=== PATIENT | female | born 1950 | race Caucasian/White ===

== ENCOUNTER → 2016-11-28 | Outpatient (CLI) | payer MEDICARE, OTHER ==
[2016-11-28 12:31] LABS: ALT 22 U/L (9-52); AST 20 U/L (14-36); Alkaline Phosphatase 65 U/L (38-126); Anion Gap 5 mmol/L; Blood Urea Nitrogen 26 mg/dL (7-17); Calcium 9.5 mg/dL (8.4-10.2); Carbon Dioxide 32 mmol/L (22-30); Chloride 105 mmol/L (98-107); Cholesterol 177 mg/dL (<200); Glucose 79 mg/dL (74-99); HDL Cholesterol 69 mg/dL (40-60); Non-African American GFR(MDRD) >60 (>60 ml/min/1.73 sqM); Potassium 5.2 mmol/L (3.5-5.1); Sodium 142 mmol/L (137-145); Total Bilirubin 0.7 mg/dL (0.2-1.3); Total Protein 6.4 g/dL (6.3-8.2); Triglycerides 70 mg/dL (<150)
[2016-11-28 12:42] LABS: Basophils % (A) 1 %; CH 31.7; CHCM 32.2; Eosinophils # (A) 0.1 k/uL (0-0.7); Eosinophils % (A) 1 %; HCT 44.2 % (34.0-46.0); HDW 2.17; HGB 14.6 gm/dL (11.4-16.0); Luc # (Auto) 0.13; Luc % (Auto) 2; Lymphocytes # (A) 1.9 k/uL (1.0-4.8); Lymphocytes % (A) 24 %; MCH 32.6 pg (25.0-35.0); MCV 98.8 fL (80.0-100.0); Mean Platelet Volume 7.2; Monocytes # (A) 0.5 k/uL (0-1.0); Monocytes % (A) 6 %; Neutrophils # (A) 5.5 k/uL (1.3-7.7); Neutrophils % (A) 68 %; RBC 4.48 m/uL (3.80-5.40); RDW 13.2 % (11.5-15.5); WBC 8.2 k/uL (3.8-10.6); WBC (Perox) 8.42
[2016-11-28 14:07] LABS: Erythrocyte Sedimentation Rate 15 mm/hr (0-20)
== END | disposition home or self-care (01) ==
LOC: LABWHC1 11:42
PROVIDERS: ATTEND Internal Medicine Infectious Disease
DX: M46.26 Osteomyelitis of vertebra, lumbar region (principal)
CPT/HCPCS: 36415; 80053; 80061; 85025; 85652; 86140

== ENCOUNTER → 2017-03-25 | Outpatient (CLI) | payer MEDICARE, OTHER ==
--- NOTE | 2017-03-27 08:49 | MM ---
Reason for exam: screening (asymptomatic). Last mammogram was performed 1 year and 2 months ago. History: Patient is postmenopausal. Benign excisional biopsy of the right breast, April 30, 2000. Taking estrogen for 26 years 1 month. Physical Findings: A clinical breast exam by your physician is recommended on an annual basis and results should be correlated with mammographic findings. MG 3D Screening Mammo W/Cad Bilateral CC and MLO view(s) were taken. Prior study comparison: January 17, 2016, bilateral MG 3d screening mammo w/cad. May 04, 2014, bilateral MG screening mammo w CAD. December 30, 2011, bilateral digital screening mammo w/CAD. There are scattered fibroglandular densities. No significant changes when compared with prior studies. ASSESSMENT: Negative, BI-RAD 1 RECOMMENDATION: Routine screening mammogram of both breasts in 1 year.
== END | disposition home or self-care (01) ==
LOC: RADMAMWWP 16:52
PROVIDERS: ATTEND Family Medicine
DX: Z12.31 Encounter for screening mammogram for malignant neoplasm of breast (principal)
CPT/HCPCS: 77063; G0202

== ENCOUNTER → 2017-11-05 | Outpatient (CLI) | payer MEDICARE, OTHER ==
[2017-11-05 10:52] LABS: Basophils % (A) 0 %; Eosinophils # (A) 0.1 k/uL (0-0.7); Eosinophils % (A) 2 %; HCT 42.2 % (34.0-46.0); HGB 14.1 gm/dL (11.4-16.0); Lymphocytes # (A) 1.7 k/uL (1.0-4.8); Lymphocytes % (A) 28 %; MCH 31.2 pg (25.0-35.0); MCHC 33.4 g/dL (31.0-37.0); MCV 93.7 fL (80.0-100.0); Mean Platelet Volume 7.4; Monocytes # (A) 0.4 k/uL (0-1.0); Monocytes % (A) 8 %; Neutrophils # (A) 3.6 k/uL (1.3-7.7); Neutrophils % (A) 61 %; Platelet Count 220 k/uL (150-450); RBC 4.51 m/uL (3.80-5.40); RDW 13.7 % (11.5-15.5); WBC 5.9 k/uL (3.8-10.6)
[2017-11-05 12:26] LABS: Erythrocyte Sedimentation Rate 15 mm/hr (0-20)
[2017-11-05 12:47] LABS: ALT 20 U/L (9-52); AST 22 U/L (14-36); Albumin 3.6 g/dL (3.5-5.0); Alkaline Phosphatase 60 U/L (38-126); Anion Gap 9 mmol/L; Blood Urea Nitrogen 23 mg/dL (7-17); C Reactive Protein 13.8 mg/L (<10.0); Calcium 9.4 mg/dL (8.4-10.2); Carbon Dioxide 30 mmol/L (22-30); Chloride 105 mmol/L (98-107); Cholesterol 223 mg/dL (<200); Glucose 93 mg/dL (74-99); HDL Cholesterol 62 mg/dL (40-60); LDL Cholesterol,Calculated 137 mg/dL (0-99); Potassium 4.6 mmol/L (3.5-5.1); Sodium 144 mmol/L (137-145); Total Bilirubin 0.4 mg/dL (0.2-1.3); Total Protein 6.4 g/dL (6.3-8.2); Triglycerides 122 mg/dL (<150)
[2017-11-05 13:43] LABS: T4, Free (Free Thyroxine) 1.67 ng/dL (0.78-2.19)
== END | disposition home or self-care (01) ==
LOC: LABWHC1 10:16
PROVIDERS: ATTEND Internal Medicine Infectious Disease
DX: M86.60 Other chronic osteomyelitis, unspecified site (principal); E03.8 Other specified hypothyroidism; E78.00 Pure hypercholesterolemia, unspecified
CPT/HCPCS: 36415; 80053; 80061; 84439; 84443; 85025; 85652; 86140

== ENCOUNTER → 2018-12-10 | Outpatient (CLI) | payer MEDICARE, OTHER ==
--- NOTE | 2018-12-10 12:00 | BD ---
EXAMINATION TYPE: Axial Bone Density DATE OF EXAM: 12/10/2018 COMPARISON: 2013 CLINICAL HISTORY: Postmenopausal female. Osteoporosis screening. Height: 60 inches Weight: 177 FRAX RISK QUESTIONS: Alcohol (3 or more units per day): no Family History (Parent hip fracture): no Glucocorticoids (More than 3mos): no (Ex: prednisone, prednisolone, methylprednisolone, dexamethasone, and hydrocortisone). History of Fracture in Adulthood: yes, back & ankle Secondary Osteoporosis: 1. Type 1 Diabetes: no 2. Hyperthyroidism: no 3. Menopause before 45: yes, total hysterectomy age 30 4. Malnutrition: no 5. Chronic liver disease: no Rheumatoid Arthritis: no Current Tobacco Use: no RISK FACTORS HISTORY OF: Spine Fracture: yes, compression fracture L-1 When: unsure Surgery to Spine: yes When: Laminectomy L2, 3, 4, 5 Family History of Osteoporosis: yes, mother Active: yes Diet low in dairy products/other sources of calcium: at least one serving a day Postmenopausal woman: yes Take estrogen and/or progesterone medications: yes How long: since surgical menopause Lost more than 2 inches in height since high school: no Frequent falls: yes Poor Health: NO Hyperparathyroidism: no Adrenal Insufficiency: no MEDICATIONS: Prednisone or other steroids: no Thyroid Medications: yes Which medication: Synthroid How Long: about 30 years Osteoporosis Medications: no Additional Medications: calcium & Vitamin D ; Vitamin B-12 shots, cholesterol meds, heart med Additional History: had M RSA 2.5 in spine 2.5 years; hypothyroid; pernicious anemia, cervical fusion EXAM MEASUREMENTS: Bone mineral densitometry was performed using the [employer] System. Bone mineral density NOT measured about the Lumbar spine because of back surgery Bone mineral density about the R hip (g/cm2): 0.966 Bone mineral density about the L hip (g/cm2): 0.995 T Score values are as follows: -----R Neck: -0.5 -----L Neck: -0.3 -----R Total: -0.2 -----L Total: -0.1 Bone mineral density has: Decreased -3.6% since study of: 05/04/2014 Bone mineral density about the L Wrist (g/cm2): 0.577 T Score values are as follows: -----Dist. R+U: -1.4 -----Prox. R+U: -0.6 -----Radius total: -1.6 Bone mineral density BASELINE for forearm IMPRESSION: Osteopenia (T Score between -2.5 and -1). There is slightly increased risk of fracture and the patient may be considered for treatment. Re-Screen 2-5 years. NOTE: T-SCORE=SD OF THE YOUNG ADULT MEAN.
--- NOTE | 2018-12-11 12:31 | MM ---
Reason for exam: screening (asymptomatic). Last mammogram was performed 1 year and 9 months ago. History: Patient is postmenopausal. Benign excisional biopsy of the right breast, April 30, 2000. Taking estrogen for 26 years 1 month. Physical Findings: A clinical breast exam by your physician is recommended on an annual basis and results should be correlated with mammographic findings. MG Screening Mammo w CAD Bilateral CC and MLO view(s) were taken. Prior study comparison: March 25, 2017, bilateral MG 3d screening mammo w/cad. January 17, 2016, bilateral MG 3d screening mammo w/cad. There are scattered fibroglandular densities. There is no discrete abnormality. No significant changes when compared with prior studies. ASSESSMENT: Negative, BI-RAD 1 RECOMMENDATION: Routine screening mammogram of both breasts in 1 year.
== END | disposition home or self-care (01) ==
LOC: RADMAMWWP 08:07
PROVIDERS: ATTEND Family Medicine
DX: Z12.31 Encounter for screening mammogram for malignant neoplasm of breast (principal); M85.80 Other specified disorders of bone density and structure, unspecified site; Z78.0 Asymptomatic menopausal state
CPT/HCPCS: 77067; 77080

== ENCOUNTER → 2020-09-08 | Outpatient (CLI) | payer MEDICARE, OTHER | END | disposition home or self-care (01) | LOC: LABWHC1 10:26 | PROVIDERS: ATTEND Family Medicine | DX: R06.02 Shortness of breath (principal); Z20.822 Contact with and (suspected) exposure to COVID-19 | CPT/HCPCS: 36415; 86769 ==

== ENCOUNTER → 2021-10-03 | Outpatient (CLI) | payer MEDICARE, OTHER ==
--- NOTE | 2021-10-03 17:39 | BD ---
EXAMINATION TYPE: Axial Bone Density DATE OF EXAM: 10/03/2021 COMPARISON: 12/10/2018 CLINICAL HISTORY: Height: 59.5 IN Weight: 154 LBS FRAX RISK QUESTIONS: Secondary Osteoporosis: 3. Menopause before 45: TOTAL HYST AGE 30 RISK FACTORS HISTORY OF: Spine Fracture: L2-L5 When: SINCE 2011 Surgery to Spine: L SPINE SURGERY SINCE 2011 Family History of Osteoporosis: YES MOTHER Active: YES Diet low in dairy products/other sources of calcium: YES Postmenopausal woman: TOTAL HYST AGE 30 Take estrogen and/or progesterone medications: YES How long: SINCE AGE 30 MEDICATIONS: Thyroid Medications: YES Which medication: Synthroid How Lon+ YEARS Additional Medications: CALCIUM, VIT D, SYNTHROID, PREMARIN/ESTROTEST, CARDIZEM, LASIX, B 12 INJECTIO NS EVERY 2 WEEKS, NAPROXIN EXAM MEASUREMENTS: Bone mineral densitometry was performed using the [employer] System. Bone mineral density about the R hip (g/cm2): 0.934 Bone mineral density about the L hip (g/cm2): 0.969 T Score values are as follows: -----R Neck: -0.7 -----L Neck: -0.5 -----R Total: -0.5 -----L Total: -0.4 Bone mineral density has: Decreased -4.1% since study of: 12/10/2018 Bone mineral density about the L Wrist (g/cm2): 0.568 T Score values are as follows: -----Dist. R+U: -1.7 -----Prox. R+U: -1.3 -----Radius total: -1.8 Bone mineral density has: Decreased -7.4% since study of: 12/10/2018 IMPRESSION: Osteopenia (T Score between -2.5 and -1). There is slightly increased risk of fracture and the patient may be considered for treatment. Re-Screen 2-5 years. NOTE: T-SCORE=SD OF THE YOUNG ADULT MEAN.
--- NOTE | 2021-10-04 14:00 | MM ---
Reason for exam: screening (asymptomatic). Last mammogram was performed 2 years and 10 months ago. History: Patient is postmenopausal. Benign excisional biopsy of the right breast, April 30, 2000. Taking estrogen for 26 years 1 month. Taking other hormone for 26 years. Physical Findings: A clinical breast exam by your physician is recommended on an annual basis and results should be correlated with mammographic findings. MG 3D Screening Mammo W/Cad Bilateral CC and MLO view(s) were taken. Prior study comparison: December 10, 2018, bilateral MG screening mammo w CAD. March 25, 2017, bilateral MG 3d screening mammo w/cad. There are scattered fibroglandular densities. There is no discrete abnormality. No significant changes when compared with prior studies. ASSESSMENT: Negative, BI-RAD 1 RECOMMENDATION: Routine screening mammogram of both breasts in 1 year.
== END | disposition home or self-care (01) ==
LOC: RADMAMWWP 09:56
PROVIDERS: ATTEND Family Medicine
DX: Z12.31 Encounter for screening mammogram for malignant neoplasm of breast (principal); M85.88 Other specified disorders of bone density and structure, other site; Z78.0 Asymptomatic menopausal state
CPT/HCPCS: 77063; 77067; 77080

== ENCOUNTER → 2022-02-28 | Outpatient (CLI) | payer MEDICARE, OTHER | END | disposition home or self-care (01) | LOC: LABWHC1 14:59 | PROVIDERS: ATTEND Surgery Plastic and Reconstructive Surgery | DX: Z01.812 Encounter for preprocedural laboratory examination (principal); Z20.822 Contact with and (suspected) exposure to COVID-19 ==

== ENCOUNTER → 2022-12-20 | Outpatient (CLI) | payer MEDICARE, OTHER ==
[2022-12-20 21:06] LABS: ALT 14 U/L (8-44); AST 19 U/L (13-35); African American GFR (CKD) 98.9 (60.0-200.0); Alkaline Phosphatase 47 U/L (41-126); BUN/Creat Ratio 33.43 Ratio (12.00-20.00); Blood Urea Nitrogen 23.4 mg/dL (9.0-27.0); Calcium 9.7 mg/dL (8.7-10.3); Carbon Dioxide 29.7 mmol/L (20.0-27.5); Chloride 104 mmol/L (96-109); Chol/HDL Ratio 3.05 Ratio; Glucose 75 mg/dL (70-110); LDL Cholesterol,Calculated 128.6 mg/dL (0.0-131.0); Non-African American GFR(CKD) 85.4 (60.0-200.0); Potassium 4.7 mmol/L (3.5-5.5); Sodium 142 mmol/L (135-145); VLDL Calculation 17.26 mg/dL (5.00-40.00)
== END | disposition home or self-care (01) ==
LOC: LABWHC1 10:26
PROVIDERS: ATTEND Internal Medicine Clinical Cardiac Electrophysiology
DX: Z79.899 Other long term (current) drug therapy (principal)
CPT/HCPCS: 36415; 80053; 80061

== ENCOUNTER → 2023-07-19 | Outpatient (CLI) | payer MEDICARE, OTHER ==
[2023-07-19 13:20] LABS: Basophils # (A) 0.04 X 10*3/uL (0.00-0.10); Basophils % (A) 0.7 %; Eosinophils # (A) 0.14 X 10*3/uL (0.04-0.35); Eosinophils % (A) 2.4 %; HGB 13.8 g/dL (12.0-15.0); Lymphocytes # (A) 1.72 X 10*3/uL (0.90-5.00); Lymphocytes % (A) 29.5 %; MCH 30.9 pg (27.0-32.0); MCHC 32.1 g/dL (32.0-37.0); MCV 96.4 FL (80.0-97.0); Mean Platelet Volume 10.6 FL (9.5-12.2); Monocytes # (A) 0.56 X 10*3/uL (0.20-1.00); Monocytes % (A) 9.6 %; NRBC Per 100 WBC 0 X 10*3/uL (0.00-0.01); Neutrophils # (A) 3.36 X 10*3/uL (1.80-7.70); Neutrophils % (A) 57.6 %; Platelet Count 246 X 10*3/uL (140-440); RBC 4.46 X 10*6/uL (4.10-5.20); RDW 14.1 % (11.5-14.5); WBC 5.83 X 10*3/uL (4.50-10.00)
[2023-07-19 13:40] LABS: BUN/Creat Ratio 21.38 Ratio (12.00-20.00); Blood Urea Nitrogen 17.1 mg/dL (9.0-27.0); Calcium 9.8 mg/dL (8.7-10.3); Carbon Dioxide 28.9 mmol/L (21.6-31.8); Chloride 104 mmol/L (96-109); Glucose 91 mg/dL (70-110); Potassium 4.3 mmol/L (3.5-5.5); Sodium 143 mmol/L (135-145)
== END | disposition home or self-care (01) ==
LOC: LABPAT 08:55
PROVIDERS: ATTEND Obstetrics & Gynecology
DX: Z01.812 Encounter for preprocedural laboratory examination (principal)
CPT/HCPCS: 80048; 85025; 86850; 86900; 86901

== ENCOUNTER 2023-07-31 06:01 | Day surgery (SDC) | payer MEDICARE, OTHER ==
[2023-07-28 14:26] VITALS: BMI 31.4
--- NOTE | 2023-07-30 22:18 | P.HPOB ---
History of Present Illness H&P Date: 07/30/23 Chief Complaint: Cystocele and rectocele This is a 72 y.o. female, 3, para 2, who presents for anterior and posterior vaginal colporrhaphy due to 2nd degree cystocele and rectocele. She was also scheduled for pubovaginal sling for urinary incontinence, but after fur ther discussion with Dr. Alexandra, she has decided not to do this portion of the surgery. She complains of a vaginal mass and urinary incontinence that is worse with lifting or coughing. OB Hx: . History of 2 sections and 1 vaginal delivery of a stillbirth. 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 Not sexually active Social Hx: . Retired. Review of Systems Constitutional: Denies chills, Denies fever Eyes: denies blurred vision, denies pain Ears: right: decreased hearing Ears, nose, mouth and throat: Denies headache, Denies sore throat Cardiovascular: Denies chest pain, Denies shortness of breath Respiratory: Denies cough Gastrointestinal: Denies abdominal pain, Denies diarrhea, Denies nausea, Denies vomiting Genitourinary: Reports prolapse symptoms, Reports stress incontinence Menstruation: Reports post hysterectomy, Reports postmenopausal Musculoskeletal: Reports low back pain, Denies myalgias Integumentary: Denies pruritus, Denies rash Neurological: Denies numbness, Denies weakness Psychiatric: Denies anxiety, Denies depression Past Medical History Past Medical History: Asthma, Chest Pain / Angina, Eye Disorder, Hearing Disorder / Deafness, Hypertension, Osteoarthritis (OA), Sleep Apnea/CPAP/BIPAP, Thyroid Disorder Additional Past Medical History / Comment(s): MACULAR DEGENERATION, 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 History of Any Multi-Drug Resistant Organisms: MRSA Date of last positivie culture/infection: 12/2012 MDRO Source:: BACK/BLOOD Past Surgical History: Back Surgery, Section, Ear Surgery, Heart Catheterization, Hysterectomy, Orthopedic Surgery Additional Past Surgical History / Comment(s): VARICOSE VEINS INJECTED, BILATERAL SHOULDER ROTATOR CUFF REPAIR, MULTIPLE BACK SURGERIES - T12-L6 FUSION, SCREWS AND RODS IN BACK - HAD MRSA INFECTION FOR 2 YRS IN SPINE, HAD ALL HARDWARE REMOVED AND REPLACED, CERVICAL FUSION, ABDOMINALPLASTY, SURGERY FOR SLEEP APNEA, PORT PLACED AND LATER REMOVED, BRACHIOPLASTY, SECTION X2, RIGHT COCHLEAR IMPLANT, bilateral carpal tunnel surgery. Past Anesthesia/Blood Transfusion Reactions: Previous Problems w/ Anesthesia Additional Past Anesthesia/Blood Transfusion Reaction / Comment(s): HAD THROAT SWELLING AND B/P DROPS WITH PROPOFOL, NEEDED EPINEPHRINE. Past Psychological History: No Psychological Hx Reported Smoking Status: Former smoker Past Alcohol Use History: None Reported Additional Past Alcohol Use History / Comment(s): QUIT SMOKING IN 1978, SMOKED 1/2 PPD FOR 7 YRS. Past Drug Use History: None Reported - Past Family History Father Family Medical History: Myocardial Infarction ([place]) Sister(s) Family Medical History: Cancer Additional Family Medical History / Comment(s): LUNG CANCER. Medications and Allergies Home Medications Medication Instructions Recorded Confirmed Type Acetaminophen Tab [Tylenol] 1,000 mg PO Q6H PRN 09/20/15 07/31/23 History Albuterol Inhaler [Ventolin Hfa 2 puff INHALATION DIRECTED PRN 09/20/15 07/31/23 History Inhaler] Cyanocobalamin [Vitamin B-12] 1 applic INJ Q14D 09/20/15 07/31/23 History Diltiazem Cd [Cardizem CD] 180 mg PO QAM 09/20/15 07/31/23 History Doxycycline Hyclate 100 mg PO BID 09/20/15 07/31/23 History Estrogens, Conjugated [Premarin] 1.25 mg PO DIRECTED 09/20/15 07/31/23 Hi story Furosemide [Lasix] 20 mg PO QAM 09/20/15 07/31/23 History Multivitamins, Thera [Multivitamin] 1 tab PO DAILY 09/20/15 07/31/23 History Triamcinolone Acetonide [Nasacort] 2 spr EA NOSTRIL HS 09/20/15 07/31/23 History Calcium Carbonate [Calcium] 600 mg PO BID 07/28/23 07/31/23 History Cholecalciferol [Vitamin D3 (25 50 mcg PO DAILY 07/28/23 07/31/23 History Mcg = 1000 Iu)] Estratest 1 tab PO Q72H 07/28/23 07/31/23 History LORazepam [Ativan] 0.5 mg PO DIRECTED PRN 07/28/23 07/31/23 History Levothyroxine Sodium [Synthroid] 137 mcg PO QAM 07/28/23 07/31/23 History Magnesium (Unknown Dose) 1 tab PO DAILY 07/28/23 07/31/23 History Mupirocin [Bactroban Nasal 1 applic NASAL DIRECTED 07/28/23 07/31/23 History Ointment 2% (with applicator)] Mv-Mn/Om3/Dha/Epa/Fish/Lut/Yoli 1 each PO DAILY 07/28/23 07/31/23 History [Ocuvite Adult 50 Plus Softgel] Naproxen [Naprosyn] 500 mg PO BID 07/28/23 07/31/23 History Potassium (Unknown Dose) 1 tab PO DAILY 07/28/23 07/31/23 History Stool Softener 1 tab PO DAILY 07/28/23 07/31/23 History polyethylene glycoL 3350 [Miralax] 1 tbsp PO DAILY 07/28/23 07/31/23 History Allergies Allergy/AdvReac Type Severity Reaction Status Date / Time adhesive tape Allergy blisters Verified 07/31/23 06:20 cyclobenzaprine HCl Allergy Rash/Hives Verified 07/31/23 06:20 [From Flexeril] hydromorphone HCl Allergy Lowers Verified 07/31/23 06:20 [From Dilaudid] b/p, Nausea & Vomiting morphine Allergy Lowers Verified 07/31/23 06:20 b/p, Nausea & Vomiting pentazocine lactate Allergy Lowers Verified 07/31/23 06:20 [From Talwin] b/p, Nausea & Vomiting propofol Allergy Anaphylaxis Verified 07/31/23 06:20 Sulfa (Sulfonamide Allergy Rash/Hives Verified 07/31/23 06:20 Antibiotics) Exam Osteopathic Statement: *. No significant issues noted on an osteopathic structural exam other than those noted in the History and Physical/Consult. HEENT: within normal limits Heart: regular rate and rhythm Lungs: clear to auscultation bilaterally Abdomen: soft, non-tender Pelvic: 2nd degree cystocele and rectocele. No adnexal masses or tenderness Extremities: neg. Khai's Assessment and Plan (1) Cystocele with rectocele Current Visit: No Status: Acute Code(s): N81.10 - CYSTOCELE, UNSPECIFIED; N81.6 - RECTOCELE SNOMED Code(s): 808482053 Plan: Proceed with anterior and posterior vaginal colporrhaphy. Patient has been cleared for surgery by Dr. Quiros. I have discussed the risks, benefits, and alternative therapies for the above- mentioned procedure and for both sedation/anesthesia as well as necessary blood products administration, if indicated, as they pertain to this patient. The patient has indicated her understanding and acceptance of the risks and procedures discussed.
[2023-07-31] MEDS ORDERED: ONDANSETRON 4 MG/2 ML VIAL IVP ONE (06:09)
[2023-07-31] MEDS ORDERED: DEXAMETHASONE SOD PHOSPHATE 4 MG/ML 1 ML VIAL IV ONE (06:09)
[2023-07-31] MEDS ORDERED: LIDOCAINE 1% (10MG/ML) FOR IV START INTRADERMA PRN (06:09)
[2023-07-31] MEDS: LACTATED RINGERS 1,000 ML IV SCH ×2 (06:48→18:10)
[2023-07-31] MEDS ORDERED: ONDANSETRON 4 MG/2 ML VIAL IVP PRN ×2 (07:00→08:50)
[2023-07-31] MEDS ORDERED: ROCURONIUM 10 MG/ML (5 ML VIAL) IV ONE (07:35)
[2023-07-31] MEDS ORDERED: KETOROLAC 15 MG/ML 1 ML VIAL ONE (07:35)
[2023-07-31] MEDS ORDERED: LIDOCAINE 1% INJ 10MG/ML (20 ML MDV) ONE (07:35)
[2023-07-31] MEDS ORDERED: NEOSTIGMINE 1 MG/ML 10 ML VIAL ONE (07:35)
[2023-07-31] MEDS ORDERED: SUCCINYLCHOLINE CHLORIDE 200 MG/10 ML VIAL IV ONE (07:35)
[2023-07-31] MEDS ORDERED: fentaNYL (PF) 50 MCG/ML 2 ML AMP ONE (07:35)
[2023-07-31] MEDS ORDERED: MIDAZOLAM 2 MG/2 ML VIAL ONE (07:35)
[2023-07-31] MEDS ORDERED: GLYCOPYRROLATE 0.2 MG/ML 2 ML VIAL ONE (07:35)
[2023-07-31] MEDS ORDERED: ETOMIDATE 2 MG/ML 10 ML VIAL ONE (07:35)
[2023-07-31] MEDS ORDERED: BACITRACIN ZINC 500 UNIT/GM OINT 28.4 GM TUBE TOPICAL ONE ×2 (08:28)
--- NOTE | 2023-07-31 08:45 | P.OP ---
Date of Procedure: 07/31/23 Preoperative Diagnosis: Cystocele and rectocele Postoperative Diagnosis: Same Procedure(s) Performed: Anterior and posterior vaginal colporrhaphy Anesthesia: ZOHRA Surgeon: Charity Patel Pastry Sous Chef #1: Goldie Bell Estimated Blood Loss (ml): 50 Pathology: other (Vaginal mucosa) Condition: stable Disposition: floor Indications for Procedure: This is a 72 y.o. female, 3, para 2, who presents for anterior and posterior vaginal colporrhaphy due to 2nd degree cystocele and rectocele. She was also scheduled for pubovaginal sling for urinary incontinence, but after further discussion with Dr. Alexandra, she has decided not to do this portion of the surgery. She complains of a vaginal mass and urinary incontinence that is worse with lifting or coughing. Operative Findings: Grade 2 cystocele and grade 2 posterior rectocele were noted. Vaginal atrophy was noted. Description of Procedure: The patient is taken to the operating room she is placed in the dorsal lithotomy position. She is prepped and draped in the normal sterile fashion. A weighted speculum was placed in the patient's vagina. Right angle retractor was used to visualize the vaginal cuff. 2 Allis cancer used to grasp the anterior edge of the vaginal cuff and then the vaginal mucosa was injected with a solution of 1 amp of epinephrine to 150 mL of normal saline. Subjective underneath the vaginal mucosa upwards towards the urethra. Next a small transverse incision was made with a scalpel between the 2 Allis clamps and then Metzenbaum scissors were used to dissect underneath the vaginal mucosa upwards towards the urethra. The edges of the vaginal mucosa were then held with Allis clamps and then the cystocele was dissected away from the vaginal mucosa with sharp and blunt dissection. The cystocele was then reduced with 0 Vicryl suture in interrupted [id number] stitches and then the vaginal mucosa was trimmed with Metzenbaum scissors. The vaginal mucosa was then sutured with 0 Vicryl suture in a running locked fashion. Next attention was turned to the posterior repair. 2 Allis clamps are used to grasp the introitus at the 6 o'clock position. Injection of the same epinephrine solution is injected underneath the vaginal mucosa upwards towards the vaginal cuff. A small vertical incision is made with the scalpel on the perineum and then Metzenbaum scissors are used to dissect underneath the va ginal mucosa upwards towards the vaginal cuff. The edges of the vaginal mucosa are held with Allis clamps and then the rectocele is freed from the vaginal mucosa with sharp and blunt dissection. The rectocele was then reduced with 0 Vicryl suture in interrupted [id number] stitches. The edges of the vaginal mucosa were then trimmed with Metzenbaum scissors. The vaginal mucosa was then sutured with 0 Vicryl suture in a running locked fashion up to the introitus and tied. Next Bhakta catheter is inserted and clear urine is noted. Next the vagina is packed with one-inch iodoform gauze with bacitracin ointment. All sponge and needle counts are correct. The patient is then taken to recovery room in stable condition.
[2023-07-31] MEDS ORDERED: ALBUTEROL NEBULIZED 2.5 MG/3 ML INHALATION PRN (08:47)
[2023-07-31] MEDS ORDERED: diphenhydrAMINE 50 MG/ML 1 ML VIAL IVP PRN (08:50)
[2023-07-31] MEDS ORDERED: KETOROLAC 15 MG/ML 1 ML VIAL IVP PRN (08:50)
[2023-07-31] MEDS ORDERED: METOCLOPRAMIDE 5 MG/ML 2 ML VIAL IVP PRN (08:50)
[2023-07-31] MEDS ORDERED: ZOLPIDEM 5 MG TAB PO PRN (08:50)
[2023-07-31] MEDS ORDERED: IBUPROFEN 600 MG TAB PO PRN (08:50)
[2023-07-31] MEDS ORDERED: SIMETHICONE 80 MG CHEWABLE PO PRN (08:50)
[2023-07-31] MEDS ORDERED: ACETAMINOPHEN IV (For NPO) 1,000 MG in EMPTY BAG 1 BAG IVPB ONE (08:50)
[2023-07-31] MEDS ORDERED: LACTATED RINGERS 1,000 ML IV ONE (09:47)
[2023-07-31] MEDS: polyethylene glycoL 3350 17 GM POWD.PACK PO SCH (12:52)
[2023-07-31] MEDS: DILTIAZEM CD 180 MG CAP.ER.24H PO SCH (12:52)
[2023-07-31] MEDS: FUROSEMIDE 20 MG TAB PO SCH (12:52)
[2023-07-31] MEDS: LEVOTHYROXINE 137 MCG TAB PO SCH (12:53)
[2023-07-31] MEDS: SENNOSIDES-DOCUSATE SODIUM 1 EACH TAB PO SCH ×2 (13:01→21:00)
[2023-07-31] MEDS: ACETAMINOPHEN TAB 325 MG TAB PO PRN ×2 (18:10→23:32)
[2023-08-01 01:59] VITALS: RESP 16; TEMP 98.4
[2023-08-01] MEDS: ACETAMINOPHEN TAB 325 MG TAB PO PRN (07:36)
[2023-08-01] MEDS: SENNOSIDES-DOCUSATE SODIUM 1 EACH TAB PO SCH (07:36)
[2023-08-01] MEDS: polyethylene glycoL 3350 17 GM POWD.PACK PO SCH (07:40)
[2023-08-01 07:44] LABS: Basophils % (A) 0 %; Eosinophils % (A) 0 %; HCT 36.6 % (34.0-46.0); HGB 11.9 gm/dL (11.4-16.0); Lymphocytes # (A) 1.6 k/uL (1.0-4.8); Lymphocytes % (A) 15 %; MCH 32.2 pg (25.0-35.0); MCHC 32.6 g/dL (31.0-37.0); MCV 98.8 fL (80.0-100.0); Mean Platelet Volume 8.9; Monocytes # (A) 0.7 k/uL (0-1.0); Monocytes % (A) 7 %; Neutrophils # (A) 7.8 k/uL (1.3-7.7); Neutrophils % (A) 76 %; Platelet Count 181 k/uL (150-450); RDW 13.2 % (11.5-15.5); WBC 10.3 k/uL (3.8-10.6)
[2023-08-01] MEDS: FUROSEMIDE 20 MG TAB PO SCH (08:44)
[2023-08-01] MEDS: LEVOTHYROXINE 137 MCG TAB PO SCH (08:44)
[2023-08-01] MEDS: DILTIAZEM CD 180 MG CAP.ER.24H PO SCH (08:44)
[2023-08-01] MEDS ORDERED: ACETAMINOPHEN TAB 325 MG TAB PO PRN (08:47)
--- NOTE | 2023-08-01 08:49 | P.DS ---
Providers Date of admission: 07/31/2023 Expected date of discharge: 08/01/23 Attending physician: Charity Patel Primary care physician: Siri Dotson MD - Discharge Diagnosis(es) (1) Cystocele with rectocele Current Visit: No Status: Acute Hospital Course: This is a 72-year-old female who underwent a anterior and posterior vaginal colporrhaphy on 07/31/2023. Postoperatively she has done well. She is not taking anything for pain. She is urinating without difficulty. She is passing flatus but no bowel movement yet. Bleeding has been minimal. Her vital signs are stable. Abdomen is soft with positive bowel sounds 4. Macrina-pad shows scant serosanguineous discharge. Extremities show negative Homans. Impression is status post anterior and posterior vaginal colporrhaphy postoperative day #1. Plan is to discharge home today. Routine postoperative instructions are given. She is advised no heavy lifting or straining. She will continue her stool softeners at home. She is advised to follow up in the office in approximately one week for a postoperative check. She is advised to call the office if she has any further questions or concerns prior to her appointment time. Procedures: Anterior and posterior vaginal colporrhaphy on 07/31/2023 Patient Condition at Discharge: Stable Plan - Discharge Summary Discharge Rx Participant: Yes New Discharge Prescriptions: No Action Triamcinolone Acetonide [Nasacort] 2 spr EA NOSTRIL HS Multivitamins, Thera [Multivitamin] 1 tab PO DAILY Furosemide [Lasix] 20 mg PO QAM Estrogens, Conjugated [Premarin] 1.25 mg PO DIRECTED Doxycycline Hyclate 100 mg PO BID Diltiazem Cd [Cardizem CD] 180 mg PO QAM Cyanocobalamin [Vitamin B-12] 1 applic INJ Q14D Albuterol Inhaler [Ventolin Hfa Inhaler] 2 puff INHALATION DIRECTED PRN PRN Reason: Shortness Of Breath Acetaminophen Tab [Tylenol] 1,000 mg PO Q6H PRN PRN Reason: Pain Naproxen [Naprosyn] 500 mg PO BID Stool Softener 1 tab PO DAILY Calcium Carbonate [Calcium] 600 mg PO BID LORazepam [Ativan] 0.5 mg PO DIRECTED PRN PRN Reason: Anxiety Estratest 1 tab PO Q72H Magnesium (Unknown Dose) 1 tab PO DAILY Cholecalciferol [Vitamin D3 (25 Mcg = 1000 Iu)] 50 mcg PO DAILY polyethylene glycoL 3350 [Miralax] 1 tbsp PO DAILY Potassium (Unknown Dose) 1 tab PO DAILY Mv-Mn/Om3/Dha/Epa/Fish/Lut/Yoli [Ocuvite Adult 50 Plus Softgel] 1 each PO DAILY Mupirocin [Bactroban Nasal Ointment 2% (with applicator)] 1 applic NASAL DIRECTED Levothyroxine Sodium [Synthroid] 137 mcg PO QAM Discharge Medication List Acetaminophen Tab [Tylenol] 1,000 mg PO Q6H PRN 09/20/15 [History] Albuterol Inhaler [Ventolin Hfa Inhaler] 2 puff INHALATION DIRECTED PRN 09/20/15 [History] Cyanocobalamin [Vitamin B-12] 1 applic INJ Q14D 09/20/15 [History] Diltiazem Cd [Cardizem CD] 180 mg PO QAM 09/20/15 [History] Doxycycline Hyclate 100 mg PO BID 09/20/15 [History] Estrogens, Conjugated [Premarin] 1.25 mg PO DIRECTED 09/20/15 [History] Furosemide [Lasix] 20 mg PO QAM 09/20/15 [History] Multivitamins, Thera [Multivitamin] 1 tab PO DAILY 09/20/15 [History] Triamcinolone Acetonide [Nasacort] 2 spr EA NOSTRIL HS 09/20/15 [History] Calcium Carbonate [Calcium] 600 mg PO BID 07/28/23 [History] Cholecalciferol [Vitamin D3 (25 Mcg = 1000 Iu)] 50 mcg PO DAILY 07/28/23 [History] Estratest 1 tab PO Q72H 07/28/23 [History] LORazepam [Ativan] 0.5 mg PO DIRECTED PRN 07/28/23 [History] Levothyroxine Sodium [Synthroid] 137 mcg PO QAM 07/28/23 [History] Magnesium (Unknown Dose) 1 tab PO DAILY 07/28/23 [History] Mupirocin [Bactroban Nasal Ointment 2% (with applicator)] 1 applic NASAL DIRECTED 07/28/23 [History] Mv-Mn/Om3/Dha/Epa/Fish/Lut/Yoli [Ocuvite Adult 50 Plus Softgel] 1 each PO DAILY 07/28/23 [History] Naproxen [Naprosyn] 500 mg PO BID 07/28/23 [History] Potassium (Unknown Dose) 1 tab PO DAILY 07/28/23 [History] Stool Softener 1 tab PO DAILY 07/28/23 [History] polyethylene glycoL 3350 [Miralax] 1 tbsp PO DAILY 07/28/23 [History] Follow up Appointment(s)/Referral(s): Charity Patel DO [Doctor of Osteopathic Medicine] - 1 Week Activity/Diet/Wound Care/Special Instructions: Activity as tolerated. Diet as tolerated. May shower, but no tub baths for approximately 1 week. No intercourse for at least 6 weeks. No heavy lifting, straining or repetitive motions. Discharge Disposition: HOME SELF-CARE
[2023-08-01 10:55] VITALS: BP 123/72; PULSE 87
== END 2023-08-01 10:30 | disposition home or self-care (01) ==
LOC: OR 06:01 → 4FBP 08:47 → OR 08-01 10:30
PROVIDERS: ATTEND Obstetrics & Gynecology
DX: N81.10 Cystocele, unspecified (principal); N81.6 Rectocele; N39.3 Stress incontinence (female) (male); I10 Essential (primary) hypertension; J45.909 Unspecified asthma, uncomplicated; M19.90 Unspecified osteoarthritis, unspecified site; G47.33 Obstructive sleep apnea (adult) (pediatric); Z87.59 Personal history of other complications of pregnancy, childbirth and the puerperium; Z90.710 Acquired absence of both cervix and uterus; Z86.14 Personal history of Methicillin resistant Staphylococcus aureus infection; Z87.891 Personal history of nicotine dependence; Z82.49 Family history of ischemic heart disease and other diseases of the circulatory system; Z80.1 Family history of malignant neoplasm of trachea, bronchus and lung; Z79.51 Long term (current) use of inhaled steroids; Z79.890 Hormone replacement therapy; Z79.899 Other long term (current) drug therapy; Z88.5 Allergy status to narcotic agent
CPT/HCPCS: 85025; 57260; J0171; J1100; J0690; J2405; J0131

== ENCOUNTER → 2023-09-20 | Outpatient (CLI) | payer MEDICARE, OTHER ==
--- NOTE | 2023-09-20 13:38 | XR ---
Bilateral hips. HISTORY: Bilateral hip pain COMPARISON: None. TECHNIQUE: 4 views were obtained in total with 2 views of each hip. FINDINGS: There is no fracture, subluxation, intraosseous or intra-articular abnormality. There are no soft tis milo abnormalities. IMPRESSION: 1. No evidence of acute trauma. 2. No significant degenerative change of the hips.
== END | disposition home or self-care (01) ==
LOC: RADXRMAIN 13:03
PROVIDERS: ATTEND Family Medicine
DX: M25.552 Pain in left hip (principal); M25.551 Pain in right hip
CPT/HCPCS: 73521

== ENCOUNTER → 2023-10-06 | Outpatient (CLI) | payer MEDICARE, OTHER ==
--- NOTE | 2023-10-06 16:31 | MM ---
Reason for Exam: Screening (asymptomatic). Last mammogram was performed 2 year(s) and 0 month(s) ago. Patient History: Menarche at age 14. First Full-Term at age 15. Left ovary removed at age 30. Right ovary removed at age 30. Hysterectomy at age 30. Postmenopausal. Currently using Estrogen, for 26 years, 1 month. 04/30/2000, Benign Excisional Biopsy on the right side. Risk Values: Aide 5 year model risk: 1.4%. NCI Lifetime model risk: 3.2%. Prior Study Comparison: 01/17/2016 Bilateral Screening Mammogram, [facility]. 03/25/2017 Bilateral Screening Mammogram, [facility]. 12/10/2018 Bilateral Screening Mammogram, [facility]. 10/03/2021 Bilateral Screening Mammogram, [facility]. Tissue Density: There are scattered fibroglandular densities. Findings: Analyzed By CAD. The pattern is symmetrical. No significant interval change is evident. A few scattered benign punctate calcifications are present bilaterally. No suspicious groups of microcalcifications, spiculated or lobular masses, architectural distortion or other secondary signs of malignancy are mammographically apparent. Overall Assessment: Benign, BI-RAD 2 Management: Screening Mammogram of both breasts in 1 year. A negative mammogram report should not preclude additional follow up of suspicious palpable abnormalities. Patient should continue monthly self breast exam. A clinical breast exam by your physician is recommended on an annual basis and results should be correlated with mammographic findings. Electronically signed and approved by: Ricardo Barahona D.O. Radiologis
--- NOTE | 2023-10-06 17:00 | BD ---
EXAMINATION TYPE: Axial Bone Density DATE OF EXAM: 10/06/2023 CLINICAL HISTORY: 72 years old Female. ICD-10 CODE: Z78.0 post menopause Height: 60 Weight: 155 FRAX RISK QUESTIONS: Alcohol (3 or more units per day): no Family History (Parent hip fracture): no Glucocorticoids (More than 3mos): no (Ex: prednisone, prednisolone, methylprednisolone, dexamethasone, and hydrocortisone). History of Fracture in Adulthood: yes Secondary Osteoporosis: 1. Type 1 Diabetes: no 2. Hyperthyroidism: no 3. Menopause before 45: yes 4. Malnutrition: no 5. Chronic liver disease: no Rheumatoid Arthritis: no Current Tobacco Use: no RISK FACTORS HISTORY OF: Spine Fracture: lumbar spine When: 2011 Surgery to Spine/Hip(right/left)/Wrist (right/left): spine- lumbar When: 2011 EXAM MEASUREMENTS: Bone mineral densitometry was performed using the [employer]. Bone mineral density about the R hip (g/cm2): 0.985 Bone mineral density about the L hip (g/cm2): 0.918 T Score values are as follows: -----R Neck: -0.1 -----L Neck: -0.2 -----R Total: -0.2 -----L Total: -0.7 Z Score values are as follows: -----R Neck: 1.7 -----L Neck: 1.6 -----R Total: 1.4 -----L Total: 0.9 Bone mineral density has: 0 % since study of: 10.03.2021 Bone mineral density about the L Wrist (g/cm2): 0.544 T Score values are as follows: -----Dist. R+U: -2.0 -----Prox. R+U: -0.8 -----Radius total: -2.2 Z Score values are as follows: -----Dist. R+U: 0.2 -----Prox. R+U: 1.4 -----Radius total: 0.1 Bone mineral density has: increased 5.5 % since study of: 10.03.2021 FRAX%s: The graph provided illustrates a 11.8 % chance for a major osteoporotic fx and a 1.0% chance for the hips probability for fx in 10 years time. IMPRESSION: Osteopenia (T Score between -2.5 and -1). There is slightly increased risk of fracture and the patient may be considered for treatment. Re-Screen 2-5 years. NOTE: T-SCORE=SD OF THE YOUNG ADULT MEAN.
== END | disposition home or self-care (01) ==
LOC: RADMAMWWP 09:25
PROVIDERS: ATTEND Family Medicine
DX: Z12.31 Encounter for screening mammogram for malignant neoplasm of breast (principal); M85.831 Other specified disorders of bone density and structure, right forearm; Z78.0 Asymptomatic menopausal state
CPT/HCPCS: 77063; 77067; 77080

== ENCOUNTER → 2023-12-25 | Outpatient (CLI) | payer MEDICARE, OTHER ==
[2023-12-25 14:10] VITALS: BP 147/75; PULSE 88; RESP 16; TEMP 98.2
--- NOTE | 2023-12-25 14:45 | P.SLEEP ---
History of Present Illness DATE: 12/25/2023 CONSULTATION/NEW PATIENT EVALUATION HISTORY OF PRESENT ILLNESS/SLEEP-WAKE EVALUATION: 73-year-old lady had been e valuated in the sleep center for multiple awakenings from sleep related to leg movements and possible obstructive sleep apnea hypopnea syndrome. Patient has history of obstructive sleep apnea documented in 1996, was on treatment with CPAP at that time. Patient had UPPP, tonsillectomy, adenoidectomy, tongue reduction surgery and after that stopped using CPAP. SLEEP SCHEDULE: Usually sleep schedule 11 PM to 7:30 AM. FALLING ASLEEP: Patient has difficulties with falling asleep. DURING SLEEP: Presently no snoring. During the night or the night patient moves your legs and that is wakes you up from sleep and does so create problem for her to fall asleep. No history of hypnogogical hallucinations, sleep paralysis, or cataplexy. DURING THE DAY/WAKE STATE: In the morning patient wake up tired, has problems with memory. [place] sleepiness scale is 0. Patient does not take naps. PAST MEDICAL HISTORY: Hypothyroidism, cardiac arrhythmia, asthma. PAST SURGICAL HISTORY: UPPP, tonsillectomy, adenoidectomy, laser surgery on the tongue. MEDICATIONS: Please see below. SOCIAL HISTORY: Please see below. FAMILY HISTORY: Heart problems, emphysema. REVIEW OF SYSTEMS: Awakenings from sleep related to leg movements. No fevers. No double vision. No recent chest pain. No shortness of breath. No abdominal pain. No bleeding episodes. No blood in urine. No seizure episodes. PHYSICAL EXAMINATION: GENERAL: A pleasant patient without any distress. VITAL SIGNS: Please see below, weight 155 pounds, BMI 30.7. HEENT: PERRLA, EOMI. Evaluation of oropharynx showed tongue protrudes midline, low position of soft palate Mallampati 2, status post UPPP. Retrognathia 3 mm. NECK: Supple. No JVD. Thyroid is not palpable. 14.5 inches in circumference. LUNGS: Clear to percussion and to auscultation. Good air exchange. No wheezing or rhonchi. HEART: S1, S2 regular. No murmurs, gallops or rubs. ABDOMEN: Soft and nontender. Bowel sounds are present. No organomegaly appreciated. EXTREMITIES: No clubbing or cyanosis. COMMUNITY SUPPORT ASSOCIATE: Awake, alert, and oriented x3. Cranial nerves 2 to 7 intact. There is no fasciculation or atrophy noted. No focal deficits observed. ASSESSMENT: 1. Significant amount of movements of her legs during the sleep. Periodic limb movements. 2. Restless leg syndrome. 3. History of obstructive sleep apnea in the past. Retrognathia. Awakenings from sleep. Rule out obstructive sleep apnea hypopnea syndrome. 4. History of cardiac arrhythmia. 5 history of asthma. 6 . Hypothyroidism. 7. Coronary artery disease. 8. Status post UPPP. 9 . Status post tonsillectomy and adenoidectomy. 10. Status post back surgery. 1 PLAN: 1. Polysomnography for evaluation of patient's breathing during sleep and to check for periodic limb movements. 2. Following plan after reading sleep study 3. Preferable position during sleep on the side. 4. No driving if patient feels any sleepiness. Patient is aware of civil and criminal liability for unsafe driving. 5. Sleep hygiene with regular sleep time for at least 7.5-8 hours. 6. Watching weight. Thank you very much for referring this patient for consultation. Sincerely, Karl Armstrong MD, PhD, FAASM. Diplomat of [place] [employer], Sleep Medicine Board by [place] [employer] [place] [employer] Trap Puller of [facility] [place] Past Medical History Past Medical History: Asthma, Chest Pain / Angina, Sleep Apnea/CPAP/BIPAP, Thyroid Disorder Additional Past Medical History / Comment(s): HX OF VASOSPASTIC ANGINA, HX OF SLEEP APNEA, HAS HAD SX History of Any Multi-Drug Resistant Organisms: MRSA Date of last positivie culture/infection: 12/2012 MDRO Source:: BACK/BLOOD Past Surgical History: Back Surgery, Heart Catheterization, Hysterectomy, Orth opedic Surgery Additional Past Surgical History / Comment(s): ZENIA SHOULDER ROTATOR CUFF, MULT. BACK SX, CURRENTLY HAS T12-L6 FUSED. SCREWS AND RODS IN BACK HAS HAD CERVICAL FU J CARLOS. ABDOMINALPLASTY, SX FOR SLEEP APNEA, HAS HAD PORT IN PAST, NOW REMOVED Additional Past Anesthesia/Blood Transfusion Reaction / Comment(s): HAD THROAT SWELLING AND B/P DROPS WITH PROPRANOLOL. NEEDED EPINEPHRINE Past Psychological History: No Psychological Hx Reported Smoking Status: Former smoker Past Alcohol Use History: None Reported Additional Past Alcohol Use History / Comment(s): QUIT SMOKING IN 1978, SMOKED 1/2 PPD FOR 7 YRS Past Drug Use History: None Reported - Past Family History Father Family Medical History: Myocardial Infarction ([place]) Sister(s) Family Medical History: Cancer Additional Family Medical History / Comment(s): LUNG CANCER. Medications and Allergies Home Medications Medication Instructions Recorded Confirmed Type Acetaminophen Tab [Tylenol] 1,000 mg PO Q6H PRN 09/20/15 12/25/23 History Albuterol Inhaler [Ventolin Hfa 2 puff INHALATION DIRECTED PRN 09/20/15 12/25/23 History Inhaler] Cyanocobalamin [Vitamin B-12] 1 applic INJ Q14D 09/20/15 12/25/23 History Diltiazem Cd [Cardizem CD] 180 mg PO QAM 09/20/15 12/25/23 History Doxycycline Hyclate 100 mg PO BID 09/20/15 12/25/23 History Estrogens, Conjugated [Premarin] 1.25 mg PO DIRECTED 09/20/15 12/25/23 History Furosemide [Lasix] 20 mg PO QAM 09/20/15 12/25/23 History Multivitamins, Thera [Multivitamin] 1 tab PO DAILY 09/20/15 12/25/23 History Triamcinolone Acetonide [Nasacort] 2 spr EA NOSTRIL HS 09/20/15 12/25/23 History Calcium Carbonate [Calcium] 600 mg PO BID 07/28/23 12/25/23 History Cholecalciferol [Vitamin D3 (25 50 mcg PO DAILY 07/28/23 12/25/23 History Mcg = 1000 Iu)] Estratest 1 tab PO Q72H 07/28/23 12/25/23 History LORazepam [Ativan] 0.5 mg PO DIRECTED PRN 07/28/23 12/25/23 History Levothyroxine Sodium [Synthroid] 137 mcg PO QAM 07/28/23 12/25/23 History Magnesium (Unknown Dose) 1 tab PO DAILY 07/28/23 12/25/23 History Mupirocin [Bactroban Nasal 1 applic NASAL DIRECTED 07/28/23 07/31/23 History Ointment 2% (with applicator)] Mv-Mn/Om3/Dha/Epa/Fish/Lut/Yoli 1 each PO DAILY 07/28/23 12/25/23 History [Ocuvite Adult 50 Plus Softgel] Naproxen [Naprosyn] 500 mg PO BID 07/28/23 12/25/23 History Potassium (Unknown Dose) 1 tab PO DAILY 07/28/23 12/25/23 History Stool Softener 1 tab PO DAILY 07/28/23 12/25/23 History polyethylene glycoL 3350 [Miralax] 1 tbsp PO DAILY 07/28/23 12/25/23 History Cyclobenzaprine [Flexeril] 10 mg PO HS 12/25/23 12/25/23 History Allergies Allergy/AdvReac Type Severity Reaction Status Date / Time adhesive tape Allergy blisters Verified 07/31/23 06:20 cyclobenzaprine HCl Allergy Rash/Hives Verified 07/31/23 06:20 [From Flexeril] hydromorphone HCl Allergy Lowers Verified 07/31/23 06:20 [From Dilaudid] b/p, Nausea & Vomiting morphine Allergy Lowers Verified 07/31/23 06:20 b/p, Nausea & Vomiting pentazocine lactate Allergy Lowers Verified 07/31/23 06:20 [From Talwin] b/p, Nausea & Vomiting propofol Allergy Anaphylaxis Verified 07/31/23 06:20 Sulfa (Sulfonamide Allergy Rash/Hives Verified 07/31/23 06:20 Antibiotics) Physical Exam Vitals: Vital Signs Temp Pulse Resp BP Pulse Ox 12/25/23 13:47 98.2 F 88 16 147/75 95 Intake and Output 12/24/23 12/25/23 12/25/23 22:59 06:59 14:59 Other: Weight 70.307 kg Sleep Note - Sleep Data ESS Total: 0 - Sleep Note Sleep Note: Temperature: 98.2 F Pulse Rate: 88 Respiratory Rate: 16 Blood Pressure: 147/75 SpO2: 95 Height: 4 ft 11.5 in Weight: 70.307 kg BMI: Neck Circumference: 14.5
== END | disposition home or self-care (01) ==
LOC: 3 N SLEEP 13:31
PROVIDERS: ATTEND Internal Medicine
DX: G47.61 Periodic limb movement disorder (principal); G25.81 Restless legs syndrome; I34.9 Nonrheumatic mitral valve disorder, unspecified; J45.909 Unspecified asthma, uncomplicated; E03.9 Hypothyroidism, unspecified; M26.19 Other specified anomalies of jaw-cranial base relationship; I25.10 Atherosclerotic heart disease of native coronary artery without angina pectoris; Z90.89 Acquired absence of other organs; Z98.890 Other specified postprocedural states; Z88.8 Allergy status to other drugs, medicaments and biological substances; Z88.2 Allergy status to sulfonamides; Z91.09 Other allergy status, other than to drugs and biological substances; Z87.891 Personal history of nicotine dependence; Z86.79 Personal history of other diseases of the circulatory system; Z88.5 Allergy status to narcotic agent
CPT/HCPCS: 99211

== ENCOUNTER → 2024-01-12 | Outpatient (CLI) | payer MEDICARE, OTHER ==
--- NOTE | 2024-01-13 17:58 | XR ---
EXAMINATION TYPE: XR lumbosacral spine min 4V DATE OF EXAM: 01/12/2024 1:15 PM CLINICAL INDICATION:Female, 73 years old with history of M54.16 LUMBAR RADICULOPATHY; PHH. History o f spinal fusion. COMPARISON: 04/05/1950 TECHNIQUE: XR lumbosacral spine min 4V - Frontal, lateral , bilateral oblique and coned in L5-S1 late ral views of the spine. FINDINGS: Pedicle screws and vertical stabilization bars as well as intervertebral disc prosthetic d evices appear normally aligned and well-positioned without evidence of periprosthetic lucency or othe r complication. No evidence of any acute osseous pathology. No evidence of loss of vertebral body height is seen. T here is normal alignment of the lumbar vertebral bodies. No significant degeneration changes througho ut the spine. IMPRESSION: 1. No acute fracture. 2. Post surgical changes including hardware without obvious complication.. Stable from prior.
== END | disposition home or self-care (01) ==
LOC: RADXRMAIN 12:50
PROVIDERS: ATTEND Family Medicine
DX: M54.16 Radiculopathy, lumbar region (principal); Z98.1 Arthrodesis status
CPT/HCPCS: 72110

== ENCOUNTER 2024-01-14 18:30 | Outpatient (CLI) | payer MEDICARE, OTHER ==
--- NOTE | 2024-01-15 12:22 | P.PCN ---
Description of Procedure: POLYSOMNOGRAPHY REPORT PROCEDURE(S)/DATE(S): Polysomnography 01/14/2024 CLINICAL: Patient has been seen in the sleep center for evaluation of obstructive sleep apnea-hypopnea syndrome. Please see my consultation. Sleep study has been done for evaluation of patient breathing during the sleep. PROCEDURE: The standard montage for clinical polysomnography included the electroencephalogram, the electrooculogram, the mentalis surface electromyography and Lead II cardiography. The respiratory battery consisted of measurements of nasal/buccal air flow, pressure transducer measurements from nose, thoracic and/or abdominal effort and intercostal surface electromyography. Video monitoring has been done to check for any parasomnia events. Nocturnal oxyhemoglobin saturations were obtained by finger oximetry. Step-mcdonald titration with positive airway pressure was utilized to control the respiratory events, if necessary. RESULTS: During the diagnostic sleep study sleep efficiency was slightly decreased to 85.8%. Latency to sleep onset was normal 9.0 min. Sleep architecture showed stage NI was significantly increased to 18.7%, Delta sleep was practically absent 0.3%, REM sleep was was extremely short atrial 2.5%. Respiratory channel showed 1 obstructive apneas, 0 mixed apneas, 0 central apneas, 43 hypopneas with lowest oxygen level 84%. Total apnea hypopnea index was 8.3. Heart rate was in the range between 69 and 76, average 73 by computer calculation. EMG showed 37.5 periodic limb movements per hour with 0 micro-arousals per hour. IMPRESSIONS: 1. Obstructive sleep apnea hypopnea syndrome. 2. Significant periodic limb movements have been documented. Please see other impressions from consultation PLAN: 1. I will see patient for follow-up visit to explain results of the test and following plan. Will consider to restart CPAP treatment. 2. Losing weight program. 3. Sleep hygiene with regular time in bed for at least 7-1/2 hours. 4. No driving if feeling sleepiness. 5. Please check iron profile including ferritin level. Low level of iron may increase the risk for periodic limb movements. We may consider pharmacotherapy for restless leg symptoms and periodic limb movements. Thank you very much for allowing me to participate in the management of your patient. Sincerely, Karl Armstrong MD, PhD, FAASM. Diplomat of [place] [employer], Sleep Medicine Board by [place] [employer] [place] Inspector of [facility] [place]
== END 2024-01-15 07:45 | disposition home or self-care (01) ==
LOC: 3 N SLEEP 18:30
PROVIDERS: ATTEND Internal Medicine
DX: G47.33 Obstructive sleep apnea (adult) (pediatric) (principal); G47.61 Periodic limb movement disorder; Z91.048 Other nonmedicinal substance allergy status; Z88.8 Allergy status to other drugs, medicaments and biological substances; Z88.5 Allergy status to narcotic agent; Z88.2 Allergy status to sulfonamides; Z87.891 Personal history of nicotine dependence
CPT/HCPCS: 95810

== ENCOUNTER → 2024-02-11 | Outpatient (CLI) | payer MEDICARE ==
[2024-02-11 15:05] VITALS: BP 94/61; PULSE 80; RESP 16; TEMP 98
--- NOTE | 2024-02-11 15:41 | P.PROGSL ---
Subjective DATE: 02/11/2024 FOLLOW UP VISIT. Patient returned to sleep center for follow-up visit to discuss results of sleep study and following plan. I discussed results of sleep study with patient in details. Sleep study showed that patient has obstructive sleep apnea hypopnea syndrome. Patient has significant amount of periodic limb movements during the sleep and she also has restless leg symptoms during the day. . [place] sleepiness scale is 0. MEDICATIONS: Please see below During physical exam: GENERAL: A pleasant patient without any distress. VITAL SIGNS: Please see below, weight 155 pounds, BMI 30.7. HEENT: PERRLA, EOMI. NECK: Supple. No JVD. LUNGS: Clear to percussion and to auscultation. Good air exchange. No wheezing or rhonchi. HEART: S1, S2 regular. ABDOMEN: Soft and nontender. EXTREMITIES: No clubbing or cyanosis. PHYSICIAN SCRIBE: Awake, alert, and oriented x3. No focal deficit. Impressions: 1. Obstructive sleep apnea hypopnea syndrome in mild range, apnea hypopnea index 8.3 2. Periodic limb movement 37.5 times per hour have been documented during the sleep study. 3. Restless leg syndrome. 4. History of cardiac arrhythmia. 5. History of asthma. 6. Hypothyroidism. 7. Coronary artery disease. 8. Status post back surgery. 9. Status post UPPP. 10 status post tonsillectomy and adenoidectomy Plan: 1. Patient will be started on treatment with CPAP with nasal pillows and should use equipment every night for the whole night. 2. Sleep hygiene with regular time in bed for at least 8 hours. 3. Please check iron profile including ferritin level. If ferritin level less than 50 ng/mL patient should receive iron supplement. 4. Precautions related to driving. No driving if feel any sleepiness. Patient is aware about civil and criminal liability for unsafe driving, promised to follow recommendations. 5. Will try lowest doses of dopaminergic agonist at nighttime to prevent restless leg syndrome and periodic limb movements. 6. Follow-up visit in 31-90 days after patient will be started on treatment with CPAP to limit clinical response on treatment, compliance with treatment and [place] adjustments related to mask fitting pressure and humidification. Thank you very much for allowing me to participate in the management of your patient. Karl Armstrong MD, PhD, FAASM. Diplomat of [place] [employer], Sleep Medicine Board by [place] [employer] Date Night Caregiver of [facility] [place] cc: Ezra Shine DO Objective - Vital Signs Vital Signs: Vital Signs Temp 98 F 02/11/24 15:02 Pulse 80 02/11/24 15:02 Resp 16 02/11/24 15:02 BP 94/61 02/11/24 15:02 Pulse Ox 99 02/11/24 15:02 FiO2 Intake & Output 02/10/24 02/11/24 02/11/24 18:59 06:59 18:59 Weight 70.307 kg Home Medications: Home Medications Medication Instructions Recorded Confirmed Type Acetaminophen Tab [Tylenol] 1,000 mg PO Q6H PRN 09/20/15 02/11/24 History Albuterol Inhaler [Ventolin Hfa 2 puff INHALATION DIRECTED PRN 09/20/15 02/11/24 History Inhaler] Cyanocobalamin [Vitamin B-12] 1 applic INJ Q14D 09/20/15 02/11/24 History Diltiazem Cd [Cardizem CD] 180 mg PO QAM 09/20/15 02/11/24 History Doxycycline Hyclate 100 mg PO BID 09/20/15 02/11/24 History Estrogens, Conjugated [Premarin] 1.25 mg PO DIRECTED 09/20/15 02/11/24 History Furosemide [Lasix] 20 mg PO QAM 09/20/15 02/11/24 History Multivitamins, Thera [Multivitamin] 1 tab PO DAILY 09/20/15 02/11/24 History Triamcinolone Acetonide [Nasacort] 2 spr EA NOSTRIL HS 09/20/15 02/11/24 History Calcium Carbonate [Calcium] 600 mg PO BID 07/28/23 02/11/24 History Cholecalciferol [Vitamin D3 (25 50 mcg PO DAILY 07/28/23 02/11/24 History Mcg = 1000 Iu)] Estratest 1 tab PO Q72H 07/28/23 02/11/24 History LORazepam [Ativan] 0.5 mg PO DIRECTED PRN 07/28/23 02/11/24 History Levothyroxine Sodium [Synthroid] 137 mcg PO QAM 07/28/23 02/11/24 History Magnesium (Unknown Dose) 1 tab PO DAILY 07/28/23 02/11/24 History Mupirocin [Bactroban Nasal 1 applic NASAL DIRECTED 07/28/23 02/11/24 History Ointment 2% (with applicator)] Mv-Mn/Om3/Dha/Epa/Fish/Lut/Yoli 1 each PO DAILY 07/28/23 02/11/24 History [Ocuvite Adult 50 Plus Softgel] Naproxen [Naprosyn] 500 mg PO BID 07/28/23 02/11/24 History Potassium (Unknown Dose) 1 tab PO DAILY 07/28/23 02/11/24 History Stool Softener 1 tab PO DAILY 07/28/23 02/11/24 History polyethylene glycoL 3350 [Miralax] 1 tbsp PO DAILY 07/28/23 02/11/24 History Cyclobenzaprine [Flexeril] 10 mg PO HS 12/25/23 02/11/24 History
== END ==
LOC: 3 N SLEEP 14:29
PROVIDERS: ATTEND Internal Medicine
DX: G47.33 Obstructive sleep apnea (adult) (pediatric) (principal); G47.61 Periodic limb movement disorder; G25.81 Restless legs syndrome; E03.9 Hypothyroidism, unspecified; I25.10 Atherosclerotic heart disease of native coronary artery without angina pectoris; J45.909 Unspecified asthma, uncomplicated; Z98.890 Other specified postprocedural states; Z90.89 Acquired absence of other organs; Z86.79 Personal history of other diseases of the circulatory system; Z79.899 Other long term (current) drug therapy; Z79.890 Hormone replacement therapy; Z87.891 Personal history of nicotine dependence; Z91.048 Other nonmedicinal substance allergy status; Z88.5 Allergy status to narcotic agent; Z88.2 Allergy status to sulfonamides; Z88.8 Allergy status to other drugs, medicaments and biological substances
CPT/HCPCS: 99212

== ENCOUNTER → 2024-04-13 | Outpatient (CLI) | payer MEDICARE ==
--- NOTE | 2024-04-13 11:26 | MR ---
EXAMINATION TYPE: MR lumbar spine wo con DATE OF EXAM: 04/13/2024 COMPARISON: NONE HISTORY: Lower back pain, BLE radiculopathy into buttocks and front of thighs. Hx surgery. TECHNIQUE: T1 and T2 axial and sagittal images of the lumbar spine are submitted. FINDINGS: Assessment of the spinal cord limited due to surgical artifact.. There is severe degenerative disc disease T10-L1 with small central disc protrusion T11-T12 and there straightening of the cervical spine with postsurgical change extending from levels T12-L5. Simple ap pearing renal cyst. There is a small area of abnormal signal and paracentrally to the right posterior to the root vertebr al body of indeterminate etiology. Possibly artifactual could not exclude disc herniation or fragment . At L1-2 there is fusion of L1 and L2. Spinal canal nondiagnostic due to artifact. At L2-3 there is disc spacer with the severe degenerative disc disease. Artifact limits assessment fo r spinal canal. Post laminectomy changes. At L3-4 there is postsurgical change of the disc spacer and laminectomy transpedicular screws. Neural foramina are grossly patent. No obvious canal stenosis or disc herniation. At L4-5 there is postsurgical changes with no obvious disc herniation or canal stenosis. Correlate fo r prior laminectomy. There is a tiny fluid collection the posterior soft tissues which could represen t postoperative seroma. At L5-S1 there is facet arthropathy with no disc herniation, canal stenosis o r foraminal encroachment. IMPRESSION: 1. Postsurgical changes with limited assessment of spinal canal due to artifact from the postsurgical findings. Visualized levels demonstrate no new evidence of disc herniation or canal stenosis. 2. There is severe degenerative disc disease lower thoracic spine partially included in the field-of- view with a small central disc protrusion at T11-T12. 3. There is some degree of clumping of the nerve roots which could be associated with arachnoiditis. 4. Limited assessment of spinal canal at L1-L2 where there is a right paracentral area of abnormal si gnal. Could not determine whether this is artifact or a small disc herniation or fragment. Recommend postcontrast imaging.
== END | disposition home or self-care (01) ==
LOC: RADMRIMAIN 09:38
PROVIDERS: ATTEND Orthopaedic Surgery
DX: M47.24 Other spondylosis with radiculopathy, thoracic region (principal); M47.26 Other spondylosis with radiculopathy, lumbar region; M41.24 Other idiopathic scoliosis, thoracic region; Z98.890 Other specified postprocedural states
CPT/HCPCS: 72148

== ENCOUNTER → 2024-12-23 | Outpatient (CLI) | payer MEDICARE, OTHER ==
--- NOTE | 2024-12-23 08:36 | MM ---
Reason for Exam: Screening (asymptomatic). Last mammogram was performed 1 year(s) and 3 month(s) ago. Patient History: Menarche at age 14. First Full-Term at age 15. Left ovary removed at age 30. Right ovary removed at age 30. Hysterectomy at age 30. Postmenopausal. Currently using Estrogen, for 26 years, 1 month. 04/30/2000, Benign Excisional Biopsy on the right side. Risk Values: Aide 5 year model risk: 1.4%. NCI Lifetime model risk: 2.8%. Prior Study Comparison: 12/10/2018 Bilateral Screening Mammogram, [facility]. 10/03/2021 Bilateral Screening Mammogram, [facility]. 10/06/2023 Bilateral MG 3D screening mammo w/cad, [facility]. Tissue Density: There are scattered areas of fibroglandular density. Findings: Analyzed By CAD. There is no suspicious group of microcalcifications or new suspicious mass in either breast. Overall Assessment: Negative, BI-RAD 1 Management: Screening Mammogram of both breasts in 1 year. . Patient should continue monthly self-breast exams. A clinical breast exam by your physician is recommended on an annual basis. This exam should not preclude additional follow-up of suspicious palpable abnormalities. Note on Aide scores and lifetime risk: 1. A Aide score greater than 3% is considered moderate risk. If this is the case, consider specialist referral to assess eligibility for a risk reducing agent. 2. If overall lifetime risk for the development of breast cancer is 20% or higher, the patient may qualify for future screening with alternating mammogram and breast MRI. [facility], , 12/23/2024 8:02 AM. Electronically signed and approved by: Johnson Nicole M.D.
== END | disposition home or self-care (01) ==
LOC: RADMAMWWP 07:37
PROVIDERS: ATTEND Family Medicine
DX: Z12.31 Encounter for screening mammogram for malignant neoplasm of breast (principal); R92.323 Mammographic fibroglandular density, bilateral breasts; Z78.0 Asymptomatic menopausal state
CPT/HCPCS: 77063; 77067

== ENCOUNTER 2024-12-27 08:48 | Day surgery (SDC) | payer MEDICARE, OTHER ==
[2024-12-22 14:29] VITALS: BMI 28.2
[~2024-12-27 08:48] MED LIST: LIDOCAINE 1% (10MG/ML) FOR IV START INTRADERMA PRN; Pre Op ABX Message 1 EACH MISC MISCELLANE ONE; fentaNYL (PF) 50 MCG/ML 2 ML AMP IV PRN
[2024-12-27] MEDS: IV FLUID CONTINUATION 1,000 ML IV ONE (09:37)
[2024-12-27] MEDS: ACETAMINOPHEN TAB 500 MG TAB PO PRN (09:40)
[2024-12-27] MEDS: LACTATED RINGERS 1,000 ML IV SCH (09:41)
[2024-12-27] MEDS: DEXAMETHASONE SOD PHOSPHATE 4 MG/ML 1 ML VIAL IV ONE (09:42)
[2024-12-27] MEDS: ONDANSETRON 4 MG/2 ML VIAL IVP ONE (09:42)
[2024-12-27] MEDS: HEPARIN SODIUM,PORCINE 5,000 UNIT/ML 1 ML VIAL SQ PRN (09:46)
[2024-12-27] MEDS: SODIUM CHLORIDE 0.9% 100 ML with ceFAZolin 2,000 MG IV ONE (11:02)
[2024-12-27] MEDS ORDERED: MIDAZOLAM 2 MG/2 ML VIAL ONE (11:06)
[2024-12-27] MEDS ORDERED: ETOMIDATE 2 MG/ML 10 ML VIAL ONE (11:06)
[2024-12-27] MEDS ORDERED: SUCCINYLCHOLINE CHLORIDE 200 MG/10 ML VIAL IV ONE (11:06)
[2024-12-27] MEDS ORDERED: fentaNYL (PF) 50 MCG/ML 2 ML AMP ONE (11:06)
[2024-12-27] MEDS: BUPIVACAINE (PF) 0.25% 30 ML VIAL SQ ONE ×2 (11:30→11:37)
[2024-12-27 12:06] VITALS: TEMP 97.4
[2024-12-27] MEDS ORDERED: NALOXONE 0.4 MG/ML 1 ML VIAL IV PRN (12:10)
--- NOTE | 2024-12-27 12:19 | P.OP ---
Date of Procedure: 12/27/24 Procedure(s) Performed: PREOPERATIVE DIAGNOSIS: Symptomatic hemorrhoids POSTOPERATIVE DIAGNOSIS: Same PROCEDURE: Excisional hemorrhoidectomy right posterior location SURGEON: [place] EBL: 20 cc ANESTHESIA: General COMPLICATIONS: None OPERATIVE PROCEDURE: Patient placed in the prone jackknife position after ge neral anesthesia was achieved. The patient had a prominent hemorrhoid in the posterior position slightly to the right of midline. The rectal retractor was utilized. No anorectal abnormalities were noted other than the hemorrhoids. At the apex of the external hemorrhoid a 3-0 chromic stitch was used to ligate the feeding vessel. This was tied down and the stitch was left in place. We then made an elliptical incision extending from the perianal skin elliptically around the external hemorrhoid taking care to avoid any injury to the anal sphincter. The hemorrhoid was excised using a combination of sharp dissection, electrocautery, and the harmonic scalpel. This dissection took place just distal to the stitch that was previously placed. Using that same 3-0 chromic stitch I then sutured closed the defect in a locking fashion. This was carried out to the apex of our skin incision. This was then tied. The surgical site was inspected for bleeding. None was seen. The tissues around the surgical site was infiltrated with quarter percent Marcaine solution. Gelfoam was then placed against each incision. A rolled piece of 4 x 4 was placed in the gluteal crease. DISPOSITION: Stable to recovery room
[2024-12-27 13:43] VITALS: BP 110/63; PULSE 77; RESP 18
== END 2024-12-27 13:59 | disposition home or self-care (01) ==
LOC: OR 08:48
PROVIDERS: ATTEND Surgery
DX: K64.4 Residual hemorrhoidal skin tags (principal)
CPT/HCPCS: 88304; 46999; J2250; J0330; J1644; J1100; J2405; J0690; J3010; J0665